=== PATIENT | male | born 1980 | race Two or more races ===

== ENCOUNTER 2023-02-24 15:08 | Emergency (ER) | payer BC ==
[~2023-02-24] VITALS: Ht 185.4 cm; Wt 98.4 kg
[2023-02-24 15:42] VITALS: BP 183/145; TEMP 98.4; O2SAT 97
== END 2023-02-24 15:40 | disposition home or self-care (01) ==
LOC: ER 15:11
DX: I10 Essential (primary) hypertension (principal)